=== PATIENT | male | born 1965 | race Caucasian/White ===

== ENCOUNTER 2021-02-21 18:17 | Inpatient (IN) | payer MEDICAID ==
[~2021-02-21] VITALS: Ht 167.6 cm; Wt 83.7 kg
[2021-02-21 18:20] VITALS: BP 150/84
[2021-02-21 19:01] LABS: ABSOLUTE BASOPHILS 0.1 thou/uL (0.0-0.2); ABSOLUTE EOSINOPHILS 0.1 thou/uL (0.0-0.7); ABSOLUTE LYMPHOCYTES 2.6 thou/uL (0.8-5.3); ABSOLUTE MONOCYTES 0.7 thou/uL (0.0-1.2); ABSOLUTE NEUTROPHILS 3.6 thou/uL (1.6-8.1); BASOPHILS 0.9 %; EOSINOPHILS 1.1 %; HEMATOCRIT 34.4 % (42.0-52.0); HEMOGLOBIN 10.9 gm/dL (14.0-18.0); LYMPHOCYTES 37.5 %; MCH 26.4 pg (26.0-34.0); MCHC 31.6 g/dL (28.0-37.0); MCV 83.4 fL (80.0-100.0); MONOCYTES 9.4 %; MPV 8.7 fl. (7.2-11.1); NUCLEATED RBCS 0 /100WBC; PLATELET COUNT* 212 thou/uL (150-400); POLYS 51.1 %; RBC 4.13 mil/uL (4.50-6.00); RDW-CV 16.1 % (10.5-14.5)
[2021-02-21 19:10] LABS: APTT 23.1 Seconds (25.0-31.3); PROTIME 11.1 Seconds (9.20-11.50)
[2021-02-21 19:24] LABS: CALCIUM 8.9 mg/dL (8.5-10.1); CREATININE 0.9 mg/dL (0.6-1.3)
[2021-02-21 19:33] LABS: ALBUMIN 3.6 g/dL (3.4-5.0); MAGNESIUM 1.9 mg/dL (1.8-2.4); TOTAL BILIRUBIN 1.8 mg/dL (<0.1-1.0); TOTAL PROTEIN 7.5 g/dL (6.4-8.2)
[2021-02-21 20:49] LABS: BE 13.7 mmol/L (-2 to +3)
[2021-02-21 20:52] LABS: PCO2 76.3 mmHg (35.0-45.0); PO2 54.1 mmHg (75.0-100.0)
[2021-02-21 22:00] VITALS: BP 131/94
[2021-02-21 22:01] VITALS: BP 160/98
[2021-02-21] MEDS ORDERED: TYLENOL325 M1 PO (23:06)
[2021-02-21] MEDS ORDERED: PROAIR HFA8.5 GM INH (23:07)
[2021-02-21] MEDS ORDERED: BROVANA15 MCG/2 M INH (23:09)
[2021-02-21] MEDS ORDERED: ASA81BEC PO (23:13)
[2021-02-21] MEDS ORDERED: LIPITOR40 MG PO (23:14)
[2021-02-21] MEDS ORDERED: COMBIVENT RESPIM4 GM INH (23:21)
[2021-02-21 23:30] VITALS: BP 135/95
[2021-02-21] MEDS ORDERED: DIGITEK250 MC2 PO (23:30)
[2021-02-21] MEDS ORDERED: ESCITALOPRA5 MG/5 ML PO (23:30)
[2021-02-21] MEDS ORDERED: IPRATROPIU0.2 MG/1 M INH (23:36)
[2021-02-21] MEDS ORDERED: LEVETIRACETAM500 M1 PO (23:37)
[2021-02-21] MEDS ORDERED: MELATONIN3 M1 PO (23:37)
[2021-02-21] MEDS ORDERED: KAPSPARGO SPRIN25 MG PO (23:38)
[2021-02-21] MEDS ORDERED: MIRALAX119 GM PO (23:38)
[2021-02-21] MEDS ORDERED: PROTONIX40 M2 PO (23:40)
[2021-02-21] MEDS ORDERED: CVS SENNA PLUS1 EACH PO (23:41)
[2021-02-22 03:45] VITALS: BP 131/80
[2021-02-22 08:08] LABS: HEMOGLOBIN 10.6 gm/dL (14.0-18.0); MCH 25.7 pg (26.0-34.0); MCHC 31.2 g/dL (28.0-37.0); MCV 82.3 fL (80.0-100.0); MPV 9.5 fl. (7.2-11.1); NUCLEATED RBCS 0 /100WBC; PLATELET COUNT* 223 thou/uL (150-400); RBC 4.14 mil/uL (4.50-6.00); RDW-CV 16.5 % (10.5-14.5); WBC 8.1 thou/uL (4.0-11.0)
[2021-02-22 08:14] LABS: ALBUMIN 3.8 g/dL (3.4-5.0); CALCIUM 9.3 mg/dL (8.5-10.1); POTASSIUM 3.4 mmol/L (3.5-5.1); TOTAL BILIRUBIN 1.6 mg/dL (<0.1-1.0); TOTAL PROTEIN 7.6 g/dL (6.4-8.2)
[2021-02-22 08:32] VITALS: BP 149/96
[2021-02-22 09:01] LABS: ABSOLUTE LYMPHOCYTES 0.7 thou/uL (0.8-5.3); ABSOLUTE MONOCYTES 0.1 thou/uL (0.0-1.2); ABSOLUTE NEUTROPHILS 7.3 thou/uL (1.6-8.1); PLATELET ESTIMATE ADEQUATE
--- NOTE | 2021-02-22 10:32 | EKG ---
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1965 Requested By: Devyn Gage Order Number: [id number] MD: Dagoberto Grijalva Measurements Intervals [place] Rate: 75 P: PA: QRS: 64 QRSD: 98 T: 149 QT: 404 QTc: 452 Interpretive Statements Atrial fibrillation Borderline low voltage, extremity leads Borderline repolarization abnormality No previous ECG available for comparison Electronically Signed On 02-22-2021 10:32:04 CDT by Dagoberto Grijalva [email or web address] <ELECTRONICALLY SIGNED> By: Dagoberto Grijalva MD, [facility] 02/22/21 1032 182 182 Dagoberto Grijalva MD, [facility] /EPI
[2021-02-22 12:36] VITALS: BP 134/83
[2021-02-22 16:04] VITALS: BP 114/65
--- NOTE | 2021-02-22 16:15 | 2DMMODE ---
[place] [address] 2 D/M-MODE ECHOCARDIOGRAM Name: ELOISA ROLLINS Room: [address] IN [place].#: [id number] Admission: 02/21/21 Attend Phys: Austin Rojas Discharge: Date of : 69 Date of Service: 02/22/21 1614 Report #: [id number] THIS REPORT FOR: cc: FAM - No family physician/PCP FAM - No family physician/PCP Dagoberto Grijalva MD [facility] ~ APPROVED REPORT Study performed: 02/22/2021 14:45:39 EXAM: Comprehensive 2D, Doppler, and color-flow Echocardiogram Patient Location: In-Patient Room #: 222 BSA: 1.91 HR: 88 bpm BP: 134/83 mmHg Rhythm: Atrial Fibrillation Other Information Study Quality: Good Indications Congestive Heart Failure COPD 2D Dimensions IVSd: 13.50 (7-11mm) LVOT Diam: 21.61 (18-24mm) LVDd: 41.05 mm PWd: 10.39 (7-11mm) Ascending Ao: 38.04 (22-36mm) LVDs: 28.91 (25-40mm) Aortic Root: 36.80 mm Volumes Left Atrial Volume (Systole) LA ESV Index: 57.90 mL/m2 Aortic Valve AoV Peak Jaguar.: 1.47 m/s AO Peak Gr.: 8.68 mmHg LVOT Max P.59 mmHg AO Mean Gr.: 5.04 mmHg LVOT Mean P.38 mmHg LVOT Max V: 1.07 m/s AO V2 VTI: 20.03 cm LVOT Mean V: 0.70 m/s JONATHAN (VTI): 3.60 cm2 LVOT V1 VTI: 19.68 [place] [address] 2 D/M-MODE ECHOCARDIOGRAM Name: RIAELOISA Room: [address] IN ..#: [id number] Admission: 02/21/21 Attend Phys: Austin Rojas Discharge: Date of : 69 Date of Service: 02/22/21 1614 Report #: [id number] TDI Medial E' Jaguar.: 0.09 m/s Lateral E' Jaguar.: 0.09 m/s Pulmonary Valve PV Peak Jaguar.: 1.08 m/s PV Peak Gr.: 4.63 mmHg Left Ventricle The left ventricle is normal size. There is normal LV segmental wall motion. There is normal left ventricular wall thickness. Left ventricular systolic function is normal. The left ventricular ejection fraction is within the normal range. LVEF is 60-65%. This study is not technically sufficient to allow evaluation of the LV diastolic function due to atrial fibrillation. Right Ventricle The right ventricle is normal size. The right ventricular systolic function is normal. Atria Left atrium is moderately dilated. The right atrium size is normal. Aortic Valve Mild aortic valve sclerosis. No aortic regurgitation is present. There is no aortic valvular stenosis. Mitral Valve The mitral valve is normal in structure. Trace mitral regurgitation. No evidence of mitral valve stenosis. Tricuspid Valve The tricuspid valve is normal in structure. Trace tricuspid regurgitation. Pulmonic Valve The pulmonary valve is normal in structure. There is no pulmonic valvular regurgitation. Great Vessels The aortic root is normal in size. The ascending aorta is mildly dilated. IVC is normal in size and collapses >50% with inspiration[place] [address] 2 D/M-MODE ECHOCARDIOGRAM Name: ELOISA ROLLINS Room: [address] IN .R.#: [id number] Admission: 02/21/21 Attend Phys: Austin Rojas Discharge: Date of : 69 Date of Service: 02/22/211613 Report #: [id number] There is no pericardial effusion. <Conclusion> LVEF is 60-65%. Left atrium is moderately dilated. The ascending aorta is mildly dilated. <ELECTRONICALLY SIGNED> By: Dagoberto Grijalva MD, [facility] 02/22/21 1614 13 13 Dagoberto Grijalva MD, [facility] /INF
[2021-02-22 20:00] VITALS: BP 128/70
[2021-02-22 23:50] VITALS: BP 111/79
[2021-02-23 04:00] VITALS: BP 137/78
[2021-02-23 04:34] LABS: ABSOLUTE LYMPHOCYTES 1.1 thou/uL (0.8-5.3); ABSOLUTE MONOCYTES 0.5 thou/uL (0.0-1.2); ABSOLUTE NEUTROPHILS 13.3 thou/uL (1.6-8.1); HEMATOCRIT 31.6 % (42.0-52.0); LYMPHOCYTES 7.4 %; MCH 25.5 pg (26.0-34.0); MCHC 31.5 g/dL (28.0-37.0); MCV 80.9 fL (80.0-100.0); MONOCYTES 3.1 %; MPV 9.2 fl. (7.2-11.1); NUCLEATED RBCS 0 /100WBC; PLATELET COUNT* 227 thou/uL (150-400); POLYS 89.5 %; RDW-CV 16.5 % (10.5-14.5); WBC 14.8 thou/uL (4.0-11.0)
[2021-02-23 04:58] LABS: ALBUMIN 3.2 g/dL (3.4-5.0); ALKALINE PHOSPHATASE 84 U/L (46-116); ANION GAP < 0 mmol/L (7-16); BUN 38 mg/dL (7-18); CALCIUM 8.5 mg/dL (8.5-10.1); CHLORIDE 102 mmol/L (98-107); CO2 40 mmol/L (21-32); CREATININE 1.2 mg/dL (0.6-1.3); GLUCOSE 146 mg/dL (70-99); POTASSIUM 4.2 mmol/L (3.5-5.1); SGOT 8 U/L (15-37); SGPT 11 U/L (30-65); SODIUM 140 mmol/L (136-145); TOTAL BILIRUBIN 0.9 mg/dL (<0.1-1.0); TOTAL PROTEIN 6.7 g/dL (6.4-8.2)
[2021-02-23 07:47] VITALS: BP 129/83
[2021-02-23 13:11] VITALS: BP 119/68
[2021-02-23 17:52] VITALS: BP 134/52
[2021-02-23 19:55] VITALS: BP 120/69
[2021-02-24] VITALS: BP 118/85
[2021-02-24 03:40] VITALS: BP 142/96
[2021-02-24 04:49] LABS: ABSOLUTE LYMPHOCYTES 1.2 thou/uL (0.8-5.3); HEMOGLOBIN 9.6 gm/dL (14.0-18.0); MPV 9.2 fl. (7.2-11.1)
[2021-02-24 04:51] LABS: ABSOLUTE MONOCYTES 0.4 thou/uL (0.0-1.2); ABSOLUTE NEUTROPHILS 14.1 thou/uL (1.6-8.1); BASOPHILS 0.1 %; HEMATOCRIT 29.8 % (42.0-52.0); LYMPHOCYTES 7.6 %; MCHC 32.3 g/dL (28.0-37.0); MCV 80.7 fL (80.0-100.0); MONOCYTES 2.8 %; NUCLEATED RBCS 0 /100WBC; PLATELET COUNT* 204 thou/uL (150-400); POLYS 89.5 %; RDW-CV 16.5 % (10.5-14.5); WBC 15.8 thou/uL (4.0-11.0)
[2021-02-24 05:01] LABS: CREATININE 0.9 mg/dL (0.6-1.3); POTASSIUM 4.2 mmol/L (3.5-5.1)
[2021-02-24 08:00] VITALS: BP 137/94
[2021-02-24] MEDS ORDERED: DOXYCYCLINE 10100 MG PO (13:17)
[2021-02-24 14:24] VITALS: BP 125/80
[2021-02-24 16:30] VITALS: BP 122/70
== END 2021-02-24 17:21 | DRG 291 ==
LOC: M.ERS 18:17 → M.TBA-ER 18:54 → M.2W 20:20
PROVIDERS: Emergency Medicine; Family Medicine; ADMIT Internal Medicine; ATTEND Internal Medicine
PROC: 5A09357 Assistance with Respiratory Ventilation, Less than 24 Consecutive Hours, Continuous Positive Airway Pressure (ICD-10-PCS; principal; 2021-02-21)
PROC: 5A09357 Assistance with Respiratory Ventilation, Less than 24 Consecutive Hours, Continuous Positive Airway Pressure (ICD-10-PCS; 2021-02-22)
PROC: 5A0935A Assistance with Respiratory Ventilation, Less than 24 Consecutive Hours, High Flow/Velocity Cannula (ICD-10-PCS; 2021-02-22)
PROC: 5A0935A Assistance with Respiratory Ventilation, Less than 24 Consecutive Hours, High Flow/Velocity Cannula (ICD-10-PCS; 2021-02-23)
PROC: 5A09357 Assistance with Respiratory Ventilation, Less than 24 Consecutive Hours, Continuous Positive Airway Pressure (ICD-10-PCS; 2021-02-23)
PROC: 5A09357 Assistance with Respiratory Ventilation, Less than 24 Consecutive Hours, Continuous Positive Airway Pressure (ICD-10-PCS; 2021-02-24)
PROC: 5A0935A Assistance with Respiratory Ventilation, Less than 24 Consecutive Hours, High Flow/Velocity Cannula (ICD-10-PCS; 2021-02-24)
DX: I11.0 Hypertensive heart disease with heart failure (principal); J96.92 Respiratory failure, unspecified with hypercapnia; J96.11 Chronic respiratory failure with hypoxia; J44.1 Chronic obstructive pulmonary disease with (acute) exacerbation; J44.0 Chronic obstructive pulmonary disease with (acute) lower respiratory infection; I50.23 Acute on chronic systolic (congestive) heart failure; G47.30 Sleep apnea, unspecified; J20.9 Acute bronchitis, unspecified; Z20.822 Contact with and (suspected) exposure to COVID-19; Z86.73 Personal history of transient ischemic attack (TIA), and cerebral infarction without residual deficits; Z79.82 Long term (current) use of aspirin; Z79.899 Other long term (current) drug therapy

== ENCOUNTER 2021-07-22 03:47 | Emergency (ER) | payer MEDICAID ==
[~2021-07-22] VITALS: Ht 170.2 cm; Wt 90.7 kg
[~2021-07-22 03:47] MED LIST: ASA81BEC PO; BROVANA15 MCG/2 M INH; COMBIVENT RESPIM4 GM INH; CVS SENNA PLUS1 EACH PO; DIGITEK250 MC2 PO; DOXYCYCLINE 10100 MG PO; ESCITALOPRA5 MG/5 ML PO; IPRATROPIU0.2 MG/1 M INH; KAPSPARGO SPRIN25 MG PO; LEVETIRACETAM500 M1 PO; LIPITOR40 MG PO; MELATONIN3 M1 PO; MIRALAX119 GM PO; PROAIR HFA8.5 GM INH; PROTONIX40 M2 PO; TYLENOL325 M1 PO
[2021-07-22] MEDS ORDERED: ASA81BEC PO (04:04)
[2021-07-22] MEDS ORDERED: ALBUTEROL2.5 MG/0.5 INH (04:04)
[2021-07-22] MEDS ORDERED: ATIVAN1 M1 PO (04:05)
[2021-07-22] MEDS ORDERED: COMBIVENT RESPIM4 GM INH (04:06)
[2021-07-22] MEDS ORDERED: DIPHEN25 MG PO (04:06)
[2021-07-22] MEDS ORDERED: DIGITEK250 MC2 PO (04:07)
[2021-07-22] MEDS ORDERED: IBUPROFEN 200200 M1 PO (04:07)
[2021-07-22] MEDS ORDERED: IPRATROPIU0.2 MG/1 M INH (04:07)
[2021-07-22] MEDS ORDERED: LEXAPRO20 MG PO (04:08)
[2021-07-22] MEDS ORDERED: MELATONIN3 M1 PO (04:08)
[2021-07-22] MEDS ORDERED: KEPPRA 500 MG500 MG PO (04:08)
[2021-07-22] MEDS ORDERED: MIRALAX119 GM PO (04:09)
[2021-07-22] MEDS ORDERED: ONDANSETRON ODT4 MG PO (04:09)
[2021-07-22] MEDS ORDERED: TOPROL XL25 MG PO (04:09)
[2021-07-22] MEDS ORDERED: PROTONIX40 M2 PO (04:10)
[2021-07-22] MEDS ORDERED: SENNA PLUS TAB1 EACH PO (04:10)
[2021-07-22 04:16] LABS: HEMOGLOBIN 10.6 gm/dL (14.0-18.0); MCH 25.5 pg (26.0-34.0); MCHC 32.2 g/dL (28.0-37.0); MCV 79.1 fL (80.0-100.0); MPV 8.1 fl. (7.2-11.1); RBC 4.18 mil/uL (4.50-6.00); RDW-CV 17.4 % (10.5-14.5); WBC 6.3 thou/uL (4.0-11.0)
[2021-07-22 04:26] LABS: CALCIUM 8.7 mg/dL (8.5-10.1); CREATININE 1.6 mg/dL (0.6-1.3); POTASSIUM 4.2 mmol/L (3.5-5.1)
[2021-07-22 04:26] LABS: BE 4.5 mmol/L (-2 to +3); PO2 84.6 mmHg (75.0-100.0)
[2021-07-22 04:27] LABS: PCO2 62.1 mmHg (35.0-45.0)
[2021-07-22 04:30] LABS: ALBUMIN 3.8 g/dL (3.4-5.0); TOTAL BILIRUBIN 1.9 mg/dL (<0.1-1.0); TOTAL PROTEIN 7.2 g/dL (6.4-8.2)
[2021-07-22 04:38] LABS: ALCOHOL < 10 mg/dL (<10)
[2021-07-22 04:39] LABS: ACETAMINOPHEN < 2 ug/mL (10-30); SALICYLATE < 2.8 mg/dL (2.8-20.0)
[2021-07-22 05:11] LABS: URINE BILIRUBIN NEGATIVE (Negative); URINE BLOOD NEGATIVE (Negative); URINE CLARITY CLEAR; URINE COLOR YELLOW; URINE GLUCOSE-RANDOM NEGATIVE (Negative); URINE KETONES NEGATIVE (Negative); URINE LEUKOCYTES NEGATIVE (Negative); URINE NITRITE NEGATIVE (Negative); URINE PROTEIN NEGATIVE (Negative); URINE SPECIFIC GRAVITY 1.025 (1.005-1.030); URINE UROBILINOGEN 0.2 E.U./dl (0.2-1.0)
[2021-07-22 05:20] LABS: AMP/METHAMP POSITIVE (Negative); BARBITURATES Negative (Negative); BENZODIAZEPINES Negative (Negative); COCAINE Negative (Negative); METHADONE Negative (Negative); OPIATES Negative (Negative); PCP Negative (Negative); THC Negative (Negative)
[2021-07-22 07:21] VITALS: BP 108/78
--- NOTE | 2021-07-22 08:20 | EKG ---
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
== END 2021-07-22 08:29 | disposition home or self-care (01) ==
LOC: M.ERS 03:47
PROVIDERS: Personal Emergency Response Attendant
DX: F15.959 Other stimulant use, unspecified with stimulant-induced psychotic disorder, unspecified (principal); Z20.822 Contact with and (suspected) exposure to COVID-19; J44.9 Chronic obstructive pulmonary disease, unspecified; I50.9 Heart failure, unspecified; I48.91 Unspecified atrial fibrillation; I11.0 Hypertensive heart disease with heart failure; F17.210 Nicotine dependence, cigarettes, uncomplicated; Z79.82 Long term (current) use of aspirin; Z79.899 Other long term (current) drug therapy